=== PATIENT | female | born 1990 | race Caucasian/White ===

== ENCOUNTER 2019-02-24 15:32 | Emergency (ER) | payer OTHER ==
[~2019-02-24] VITALS: Ht 154.9 cm; Wt 95.6 kg
[2019-02-24 15:36] VITALS: BP 128/78
[2019-02-24] MEDS ORDERED: FAMOTIDINE 20 MG TABLET PO ONE (16:00)
[2019-02-24] MEDS ORDERED: DIPHENHYDRAMINE 25 MG CAPSULE PO ONE (16:00)
[2019-02-24] MEDS ORDERED: FAMOTIDINE 20 MG TABLET ONE (16:07)
[2019-02-24] MEDS ORDERED: DIPHENHYDRAMINE 25 MG CAPSULE ONE (16:07)
[2019-02-24] MEDS ORDERED: PRED20TA PO (16:20)
[2019-02-24 16:22] LABS: BASOPHILS % (AUTO) 0 % (0-1); EOSINOPHILS % (AUTO) 0 % (1-7); LYMPHOCYTES # (AUTO) 0.77 x10^3/uL (1-3.4); LYMPHOCYTES % (AUTO) 6 % (22-44); MD NO; MEAN CORPUSCULAR HEMOGLOBIN 28.9 pg (27.0-34.8); MEAN CORPUSCULAR HGB CONC 33.5 g/dL (32.4-35.8); MEAN CORPUSCULAR VOLUME 86.4 fL (80-100); MEAN PLATELET VOLUME 7.4 fL (7.4-10.4); MONOCYTES # (AUTO) 0.03 x10^3/uL (0.2-0.8); MONOCYTES % (AUTO) 0 % (2-9); NEUTROPHILS # (AUTO) 12.49 x10^3/uL (1.8-6.8); NEUTROPHILS % (AUTO) 94 % (42-75); PLATELET COUNT 361 x10^3/uL (130-400); RED BLOOD COUNT 4.73 x10^6/uL (3.82-5.3); RED CELL DISTRIBUTION WIDTH 13.9 % (9.6-15.2)
[2019-02-24 16:27] LABS: ALBUMIN 3.9 g/dL (3.4-5.0); ANION GAP 7 mmol/L (5-15); CALCIUM 8.8 mg/dL (8.5-10.1); CHLORIDE 111 mmol/L (98-107)
[2019-02-24 16:33] LABS: ALANINE AMINOTRANSFERASE 37 U/L (12-78); ALKALINE PHOSPHATASE 63 U/L (45-117); BILIRUBIN,TOTAL 0.5 mg/dL (0.2-1.0); CREATININE 0.64 mg/dL (0.55-1.02); TOTAL PROTEIN 7.4 g/dL (6.4-8.2)
--- NOTE | 2019-02-24 16:52 | NUR ---
REPORTS IMPROVMENT IN ITCHINESS. RESP EVEN & UNLABORED, SPEECH CLEAR.
== END 2019-02-24 16:54 | disposition home or self-care (01) ==
LOC: ED 16:15
DX: L50.8 Other urticaria (principal)
CPT/HCPCS: 36415; 80053; 84703; 85025; 99283; Q0163